=== PATIENT | female | born 1980 | race Caucasian/White ===

== ENCOUNTER 2018-01-22 07:05 | Day surgery (SDC) | payer SELFPAY ==
[~2018-01-22] VITALS: Ht 167.6 cm; Wt 61.2 kg
[~2018-01-22 07:05] MED LIST: GNP MELATONIN3 MG PO; NUVARING VA; TYLENOL325 M2 PO
[2018-01-22 09:55] VITALS: BP 89/60
== END 2018-01-22 10:10 | disposition home or self-care (01) | DRG 379 ==
LOC: ENDO 07:05 → ORM 10:45
PROVIDERS: ATTEND Surgery
PROC: 0DBH8ZX Excision of Cecum, Via Natural or Artificial Opening Endoscopic, Diagnostic (ICD-10-PCS; principal; 2018-01-22)
PROC: 0DBL8ZX Excision of Transverse Colon, Via Natural or Artificial Opening Endoscopic, Diagnostic (ICD-10-PCS; 2018-01-22)
PROC: 0DBN8ZX Excision of Sigmoid Colon, Via Natural or Artificial Opening Endoscopic, Diagnostic (ICD-10-PCS; 2018-01-22)
PROC: 0DBP8ZX Excision of Rectum, Via Natural or Artificial Opening Endoscopic, Diagnostic (ICD-10-PCS; 2018-01-22)
PROC: 0DBF8ZX Excision of Right Large Intestine, Via Natural or Artificial Opening Endoscopic, Diagnostic (ICD-10-PCS; 2018-01-22)
DX: K62.5 Hemorrhage of anus and rectum (principal); K62.89 Other specified diseases of anus and rectum; R10.9 Unspecified abdominal pain; R19.7 Diarrhea, unspecified; Z83.79 Family history of other diseases of the digestive system